=== PATIENT | male | born 1990 | race Caucasian/White ===

== ENCOUNTER → 2016-08-13 | Outpatient (REF) | payer BC | LOC: M LAB REF 10:57 | PROVIDERS: ATTEND Physician Assistant | DX: J02.9 Acute pharyngitis, unspecified (principal) ==

== ENCOUNTER → 2019-06-28 | Outpatient (CLI) | payer OTHER, BC ==
[2019-06-28 13:53] LABS: BASO % 0.4 % (0.0-1.0); EOS # 0.2 10^3/uL (0.0-0.5); EOS % 2.8 % (0.0-3.0); HEMATOCRIT 44.5 % (42.0-52.0); HEMOGLOBIN 14.9 g/dl (13.5-17.5); LYMPH # 1.9 10^3/uL (1.5-5.0); LYMPH % 25.9 % (24.0-44.0); MEAN CORPUSCULAR HEMOGLOBIN 29.2 pg (27.0-33.0); MEAN CORPUSCULAR HGB CONC 33.5 g/dl (32.0-36.5); MEAN CORPUSCULAR VOLUME 87.3 fl (80.0-96.0); MONO # 0.5 10^3/uL (0.0-0.8); MONO % 7.1 % (0.0-5.0); NEUTROPHILS # 4.6 10^3/uL (1.5-8.5); NEUTROPHILS % 63.4 % (36.0-66.0); PLATELET COUNT, AUTOMATED 192 10^3/uL (150-450); WHITE BLOOD COUNT 7.2 10^3/uL (4.0-10.0)
[2019-06-28 14:20] LABS: ALBUMIN 4.5 GM/DL (3.2-5.2); ALT/SGPT 38 U/L (12-78); BILIRUBIN,TOTAL 0.7 MG/DL (0.2-1.0); BLOOD UREA NITROGEN 12 MG/DL (7-18); CALCIUM LEVEL 9.1 MG/DL (8.5-10.1); CARBON DIOXIDE LEVEL 33 MEQ/L (21-32); CHLORIDE LEVEL 103 MEQ/L (98-107); CHOLESTEROL LEVEL 146 MG/DL (<200); CREATININE FOR GFR 0.91 MG/DL (0.70-1.30); GLOMERULAR FILTRATION RATE > 60.0 (>60); GLUCOSE, FASTING 74 MG/DL (70-100); HDL CHOLESTEROL 50 MG/DL (>40); LDL CHOLESTEROL 81 MG/DL (<100); NON-HDL-C 96 MG/DL; POTASSIUM SERUM 3.8 MEQ/L (3.5-5.1); SODIUM LEVEL 139 MEQ/L (136-145); TOTAL PROTEIN 7.9 GM/DL (6.4-8.2); TRIGLYCERIDES LEVEL 76 MG/DL (<150)
[2019-06-28 14:27] LABS: HEMOGLOBIN A1c 5.1 %
[2019-06-28 14:31] LABS: CREATININE,RANDOM URINE 24.8 MG/DL; TOTAL PROTEIN,RANDOM URINE < 5.0 MG/DL (0.0-12.0)
[2019-06-28 15:19] LABS: CREATININE CLEARANCE, URINE 127.8 ML/MIN (85-125); CREATININE, SERUM 0.9 MG/DL (0.6-1.3); CREATININE, URINE 87.2 MG/DL; MALB URINE SIEMENS 6.4 MG/L; MAU 24HR URINE 12.2 MG/24HR (0.0-30.0); MAU/MINUTE 8.5 MCG/MIN (0.0-20.0)
== END ==
LOC: M LAB 12:22
PROVIDERS: ATTEND Nurse Practitioner Family
DX: Z52.4 Kidney donor (principal)

== ENCOUNTER → 2020-04-03 | Outpatient (REF) | payer BC | LOC: M SMT 13:26 | PROVIDERS: ATTEND Urology | DX: Z30.2 Encounter for sterilization (principal) ==

== ENCOUNTER → 2020-06-03 | Outpatient (REF) | payer BC ==
[2020-06-03 13:46] LABS: SEMEN APPEARANCE OPAQUE (OPAQUE); SEMEN VISCOSITY VISCOUS (LIQUID); SEMEN VOLUME 1.5 ml (2.0-5.0)
[2020-06-03 13:47] LABS: WBC CONCENTRATION <=1 M/ml (<=1 M/ml)
== END ==
LOC: M SMT 13:42
PROVIDERS: ATTEND Urology
DX: Z30.2 Encounter for sterilization (principal)